=== PATIENT | male | born 1950 | race Caucasian/White ===

== ENCOUNTER 2017-07-17 08:52 | Outpatient (RCR) | payer OTHER | END 2017-07-18 | LOC: M CR 08:52 | PROVIDERS: ATTEND Internal Medicine Cardiovascular Disease | DX: Z51.89 Encounter for other specified aftercare (principal); Z98.890 Other specified postprocedural states ==

== ENCOUNTER → 2018-01-01 | Outpatient (REF) | LOC: M SMT 14:00 | DX: Z02.71 Encounter for disability determination (principal) ==